=== PATIENT | male | born 1990 | race Caucasian/White ===

== ENCOUNTER 2021-09-18 07:10 | Emergency (ER) | payer OTHER ==
[~2021-09-18] VITALS: Ht 188 cm; Wt 127.3 kg
[2021-09-18 07:12] VITALS: BP 158/92
== END 2021-09-18 08:28 | disposition left against medical advice (07) ==
LOC: EMS 07:14
DX: R07.89 Other chest pain (principal); Z53.21 Procedure and treatment not carried out due to patient leaving prior to being seen by health care provider
CPT/HCPCS: 93005

== ENCOUNTER 2021-09-18 09:16 | Emergency (ER) | payer OTHER ==
[~2021-09-18] VITALS: Ht 188 cm; Wt 100.0 kg
[2021-09-18 09:31] VITALS: BP 158/98
== END 2021-09-18 11:59 | disposition left against medical advice (07) ==
LOC: EMS 09:22
DX: M54.9 Dorsalgia, unspecified (principal); Z53.21 Procedure and treatment not carried out due to patient leaving prior to being seen by health care provider